=== PATIENT | male | born 1955 | race Caucasian/White ===

== ENCOUNTER 2025-09-19 12:33 | Outpatient (CLI) | payer MEDICARE, SELFPAY ==
--- NOTE | ~2025-09-19 | XR_ITS ---
EXAMINATION:KUB: DATE: 09/19/2025. INDICATION: Follow-up of right ureteral calculus 3 weeks ago. TECHNIQUE: Supine AP view of the abdomen obtained. COMPARISON: No prior imaging studies of the abdomen are available for comparison. FINDINGS: No definite calcific densities in the projection of right kidney and the ureters and the urinary bladder. Right kidney is partially obscured by overlying fecal material in the colon. Small calcific density in the projection of left kidney suspected, 5 mm in size. IMPRESSION: 1. Limited evaluation due to lack of prior imaging studies for comparison. 2. No definite calcific densities in the projection of right kidney, ureter and urinary bladder. 3. Suspected 5 mm calcific density in the projection of left kidney. Reviewed, dictated and finalized at location T. [employer]
== END 2025-09-19 12:34 | disposition home or self-care (01) ==
PROVIDERS: Visit Provider Student in an Organized Health Care Education/Training Program
DX: N20.1 Calculus of ureter (principal)
CPT/HCPCS: 74018